=== PATIENT | male | born 1940 | race Caucasian/White ===

== ENCOUNTER 2020-03-18 16:30 | Emergency (ER) | payer MEDICARE, OTHER ==
[~2020-03-18] VITALS: Ht 170.2 cm; Wt 81.6 kg
[2020-03-18 16:54] VITALS: BP 112/74
--- NOTE | 2020-03-18 17:10 | NUR ---
80/M BIB DAUGHTER C/O COUGH, SOB,GENERALIZED WEAKNESS, ABDOMINAL PAIN S/P COVID TESTED + 03/10/10 & ADMITTED AT [facility] & discharge 03/15/20 & was told covid tested negative result. ORAL TEMP 99.6, P 114, RR 36, O2 SAT 97% BP 112/74 AT THIS TIME. PMH:HTN
[2020-03-18] MEDS ORDERED: ALUMINUM HYD/MAG/SIMETHICONE 30 ML, DICYCLOMINE HCL LIQUID 20 MG, LIDOCAINE VISCOUS 2% ... PO ONE ×3 (17:20)
[2020-03-18] MEDS ORDERED: NACL 0.9% 1,000 ML IV SCH (17:20)
[2020-03-18] MEDS ORDERED: KETOROLAC 30 MG/ML VIAL IVP ONE (17:20)
--- NOTE | 2020-03-18 17:40 | NUR ---
PATIENT WHEELCHAIR ASSISTED TO ER BED 2.
[2020-03-18] MEDS ORDERED: DICYCLOMINE HCL LIQUID 10 MG/5 ML UDC ONE (17:53)
[2020-03-18] MEDS ORDERED: LIDOCAINE VISCOUS 2% 20 ML UDC ONE (17:53)
[2020-03-18] MEDS ORDERED: ALUMINUM HYD/MAG/SIMETHICONE 30 ML UDC ONE (17:53)
[2020-03-18 18:12] LABS: BASOPHILS % (AUTO) 0.2 % (0.0-2.0); EOSINOPHILS # (AUTO) 0.1 K/uL (0-0.4); EOSINOPHILS % (AUTO) 0.6 % (0.0-4.0); HEMATOCRIT 40.6 % (36-52); HEMOGLOBIN 13.3 g/dL (12.0-18.0); LYMPHOCYTES # (AUTO) 0.8 K/uL (2.0-11.5); LYMPHOCYTES % (AUTO) 6.9 % (20.5-51.1); MEAN CORPUSCULAR HEMOGLOBIN 29 pg (27-31); MEAN CORPUSCULAR HGB CONC 33 g/dL (33-37); MEAN CORPUSCULAR VOLUME 88.4 fL (80-94); MONOCYTES # (AUTO) 1.4 K/uL (0.8-1.0); MONOCYTES % (AUTO) 11.5 % (1.7-9.3); NEUTROPHILS # (AUTO) 9.7 K/uL (1.8-7.7); NEUTROPHILS % (AUTO) 80.8 % (42.2-75.2); PLATELET COUNT (AUTO) 303 K/uL (140-450); RED BLOOD CELL COUNT(AUTO) 4.59 MIL/uL (4.20-6.10); RED CELL DISTRIBUTION WIDTH 15.7 % (11.6-13.7)
--- NOTE | 2020-03-18 18:20 | NUR ---
INFORMED PT WE NEED URINE SAMPLE AND PROVIDED PT WITH URINAL, PT VERBALIZED UNDERSTANDING.
[2020-03-18 18:24] LABS: ALBUMIN 2.9 g/dL (3.4-5.0); ANION GAP 16.8 (8-16); ASPARTATE AMINOTRANSFERASE 28 U/L (15-37); CARBON DIOXIDE 24.9 mmol/L (21-32); CHLORIDE 100 mmol/L (98-107); CREATININE 2.2 mg/dL (0.6-1.3); GLUCOSE 130 mg/dL (74-106); LIPASE 149 U/L (73-393); POTASSIUM 3.7 mmol/L (3.5-5.1); SODIUM SERUM 138 mmol/L (136-145); TOTAL BILIRUBIN 0.9 mg/dL (0.0-1.0); UREA NITROGEN, BLOOD 25 mg/dL (7-18)
--- NOTE | 2020-03-18 18:27 | NUR ---
OBTAINED CONSENT FROM PT FOR CT ABD/PELVIS W CONTRAST
--- NOTE | 2020-03-18 19:12 | NUR ---
RECEIVED REPORT FROM CAESAR STANTON. TRANSFER OF CARE AT THIS TIME.
--- NOTE | 2020-03-18 19:15 | NUR ---
report to Carl MAYNARD/Mary MAYNARD; transfer of care at this time
--- NOTE | 2020-03-18 19:17 | NUR ---
donna ye sample handed to cash management specialist
--- NOTE | 2020-03-18 19:57 | NUR ---
LAB REPORTED POS COVID.
--- NOTE | 2020-03-18 20:22 | NUR ---
PT HAS NOT BEEN ABLE TO GIVE URINE. REPORTED TO ERMD, STATED IT'S OK, NO NEED TO STRAIGHT CATH.
[2020-03-18 20:55] VITALS: BP 114/73
--- NOTE | 2020-03-18 20:55 | NUR ---
Patient discharged with v/s stable. Written and verbal after care instructions given and explained. Patient alert, oriented and verbalized understanding of instructions. Ambulatory with steady gait. All questions addressed prior to discharge. ID band removed. Patient advised to follow up with PMD. Rx of BENTYL, PEPCID, MYLANTA given. Patient educated on indication of medication including possible reaction and side effects. Opportunity to ask questions provided and answered.
== END 2020-03-18 20:55 | disposition home or self-care (01) ==
LOC: MED 16:30
DX: U07.1 COVID-19 (principal); R10.84 Generalized abdominal pain; I10 Essential (primary) hypertension
CPT/HCPCS: 36415; 71045; 74176; 80053; 83605; 83690; 85025; 87040; 87426; 96361; 96374; 99285; J1885; J7030

== ENCOUNTER 2020-03-20 11:04 | Emergency (ER) | payer MEDICARE ==
[~2020-03-20] VITALS: Ht 170.2 cm; Wt 81.6 kg
[2020-03-20 11:10] VITALS: BP 136/86
--- NOTE | 2020-03-20 11:19 | NUR ---
DR. CARR EVALUATING PT AT BEDSIDE
[2020-03-20] MEDS ORDERED: MORPHINE SULFATE 4 MG/ML SYR IVP ONE (11:25)
[2020-03-20] MEDS ORDERED: ONDANSETRON 4 MG/2 ML VIAL IVP ONE (11:25)
--- NOTE | 2020-03-20 11:46 | NUR ---
URINAL GIVEN TO PT, ASKED PT TO PROVIDE URINE SAMPLE, PT VERBALIZED UNDERSTANDING.
--- NOTE | 2020-03-20 11:53 | NUR ---
ACCOUNTS RECEIVABLE SUPERVISOR AT BEDSIDE
--- NOTE | 2020-03-20 11:54 | NUR ---
80/M FROM HOME C/O EPIGASTRIC PAIN/MID ABD PAIN X FEW DAYS, OCCASIONAL BURNING, WORSE AT NIGHTTIME. ALSO C/O PERSISTENT COUGH. WAS SEEN HERE ON 03/18, DX WITH ABD PAIN AND TESTED POSTIVE FOR COVID. TEMP 100.5 ORAL AT TRIAGE. CONNECTED TO BEDSIDE MONITOR. HX- HTN, KIDNEY DISEASE
--- NOTE | 2020-03-20 12:03 | NUR ---
Patient returned from CT scan.
--- NOTE | 2020-03-20 12:11 | NUR ---
ORDERED LABS DRAWN FROM [facility] AND HANDED TO GULLET SLITTER
--- NOTE | 2020-03-20 12:38 | NUR ---
PT STATES UNABLE TO PROVIDE URINE SAMPLE AT THIS TIME, ALSO REFUSED STRAIGHT CATH
[2020-03-20 12:44] LABS: BASOPHILS % (AUTO) 0.3 % (0.0-2.0); EOSINOPHILS # (AUTO) 0.1 K/uL (0-0.4); EOSINOPHILS % (AUTO) 0.4 % (0.0-4.0); HEMATOCRIT 35.8 % (36-52); HEMOGLOBIN 11.5 g/dL (12.0-18.0); LYMPHOCYTES # (AUTO) 0.7 K/uL (2.0-11.5); LYMPHOCYTES % (AUTO) 6.1 % (20.5-51.1); MEAN CORPUSCULAR HEMOGLOBIN 28 pg (27-31); MEAN CORPUSCULAR HGB CONC 32 g/dL (33-37); MONOCYTES # (AUTO) 1.7 K/uL (0.8-1.0); MONOCYTES % (AUTO) 13.9 % (1.7-9.3); NEUTROPHILS # (AUTO) 9.4 K/uL (1.8-7.7); NEUTROPHILS % (AUTO) 79.3 % (42.2-75.2); PLATELET COUNT (AUTO) 219 K/uL (140-450); RED BLOOD CELL COUNT(AUTO) 4.07 MIL/uL (4.20-6.10); RED CELL DISTRIBUTION WIDTH 15.2 % (11.6-13.7); WHITE BLOOD COUNT (AUTO) 11.9 K/uL (4.8-10.8)
[2020-03-20 12:57] LABS: ALBUMIN 2.5 g/dL (3.4-5.0); ANION GAP 14.4 (8-16); ASPARTATE AMINOTRANSFERASE 29 U/L (15-37); CARBON DIOXIDE 26.2 mmol/L (21-32); CHLORIDE 101 mmol/L (98-107); CREATININE 1.7 mg/dL (0.6-1.3); GLUCOSE 106 mg/dL (74-106); LIPASE 87 U/L (73-393); POTASSIUM 3.6 mmol/L (3.5-5.1); SODIUM SERUM 138 mmol/L (136-145); UREA NITROGEN, BLOOD 19 mg/dL (7-18)
--- NOTE | 2020-03-20 13:46 | NUR ---
PT SLEEPING IN BED, CONNECTED TO BEDSIDE MONITOR, RESPIRATIONS EVEN AND UNLABORED
--- NOTE | 2020-03-20 14:14 | NUR ---
URINE SAMPLE DROPPED OFF AT LAB
[2020-03-20] MEDS ORDERED: ACETAMINOPHEN EXTRA STRENGTH 500 MG TAB PO ONE (14:15)
[2020-03-20 14:30] LABS: APPEARANCE,URINE CLEAR (CLEAR); BILIRUBIN,URINE NEGATIVE (NEGATIVE); BLOOD, URINE 1+ (NEGATIVE); COLOR,URINE YELLOW (YELLOW); LEUKOCYTE ESTERASE ,URINE 1+ (NEGATIVE); NITRITE, URINE POSITIVE (NEGATIVE); UGLUCOSE NEGATIVE (NEGATIVE)
[2020-03-20] MEDS ORDERED: cefTRIAXone 1,000 MG VIAL ONE (15:19)
--- NOTE | 2020-03-20 15:33 | NUR ---
DR. CARR SPEAKING WITH PATIENT AT BEDSIDE
--- NOTE | 2020-03-20 16:00 | NUR ---
CALLED & LEFT MESSAGE FOR PT'S SON SAMANTHA; PT READY FOR D/C
--- NOTE | 2020-03-20 16:02 | NUR ---
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
[2020-03-20 16:22] VITALS: BP 124/78
[2020-03-20 23:09] LABS: WBC,URINE 16-25 (MOD) /HPF (0-5)
== END 2020-03-20 16:22 | disposition home or self-care (01) ==
LOC: MED 11:04
DX: N39.0 Urinary tract infection, site not specified (principal); I10 Essential (primary) hypertension
CPT/HCPCS: 36415; 74176; 80053; 81001; 83690; 85025; 87086; 93005; 96365; 96375; 99285; J0696; J2270; J2405